=== PATIENT | female | born 1945 | race Caucasian/White ===

== ENCOUNTER → 2016-08-16 | Outpatient (CLI) | payer OTHER ==
[~2016-08-16] MED LIST: ADVIL200 M1 PO; ATARAX PO; ATORVASTATIN CA10 MG PO; CALTRATE 600 W-1 TAB PO; CENTRUM SILVER PO; COZAAR100 MG PO; CRANBERRY300 MG PO; DITROPAN XL5 M2 PO; DITROPAN5 MG PO; FLUOXETINE HCL20 M1 PO; HYDROCODON-ACE1 EAC7 PO; KEFLEX500 MG PO; LIPITOR PO; LORTAB 101 TAB 10/5 PO; MACRODANTIN50 MG PO; MORGIDOX100 MG PO; NORCO1 TAB 10/3; OMEPRAZOLE20 M1 PO; PREDNISONE PO; PRILOSEC20 M1 PO; REGLAN10 MG PO; SERTRALINE HCL50 MG PO; VIT C PO
--- NOTE | ~2016-08-16 | MY11 ---
[facility] A Service of [facility] RADIOLOGY TEXT RESULTS PATIENT: PAN WILKINSON LOCATION: [facility] : 41 UNIT #: [id number] AGE: [address]: Malik Gamble MD SEX: F ORDER DR: [id number] [address] [address] [id number] O MR#: [id number] Acc #: [id number] NAME: PAN WILKINSON : 1945 SEX: F STUDY DATE/TIME: 08/16/2016 10:13 UNIT: [facility] ROOM: STUDY DESCRIPTION: MY Mammogram Screening Dig Jason Attending Physician: Malik Gamble M.D. Referring Physician: Malik Gamble M.D. Ordering Physician: Malik Gamble M.D. Primary Care Physician: Malik Gamble M.D. MEDICAL IMAGING REPORT This report is preliminary unless electronic signature is present. EXAM Digital screening mammogram 08/16/2016 [facility] HISTORY 71-year-old woman; no risk elevation. Annual screening. COMPARISON Comparison mammograms date to 09/17/2010, with most recent 07/03/2015. FINDINGS Digital imaging of each breast was completed utilizing a two-view examination of each breast in craniocaudal and mediolateral-oblique projections. Review and interpretation of digital mammograms include a second review in conjunction with FDA-approved CAD device. There is a normal parenchymal presentation bilaterally consistent with the patient's age. There are no breast masses imaged and no parenchymal asymmetry is visualized. There are no suspicious microcalcifications and I see no focal architectural disturbance. IMPRESSION Negative screening digital mammogram. One-year followup recommended. Patients over the age of 40 are entered into a reminder system with target due date for the next mammogram. A result letter will also be sent to the patient. BIRADS: 1 Negative Dictated by... Bull Stover M.D. [facility] A Service of [facility] RADIOLOGY TEXT RESULTS PATIENT: PAN WILKINSON LOCATION: [facility] : 41 UNIT #: [id number] AGE: [address]: Mlaik Gamble MD SEX: F ORDER DR: THIS IS AN ELECTRONICALLY VERIFIED REPORT Bull Stover M.D. at 08/19/2016 8:15 AM Macie TD: 08/16/2016 16:52 JOB #: [id number] MEDICAL IMAGING REPORT Page 1 of 1
--- NOTE | ~2016-08-16 | BD1 ---
[facility] A Service of [facility] RADIOLOGY TEXT RESULTS PATIENT: PAN WILKINSON LOCATION: [facility] : 41 UNIT #: [id number] AGE: [address]: Malik Gamble MD SEX: F ORDER DR: [id number] [address] [address] [id number] O MR#: [id number] Acc #: [id number] NAME: PAN WILKINSON : 1945 SEX: F STUDY DATE/TIME: 08/16/2016 10:05 UNIT: [facility] ROOM: STUDY DESCRIPTION: Dexa Bone Dens 1+ Site Attending Physician: Malik Gamble M.D. Referring Physician: Malik Gamble M.D. Ordering Physician: Malik Gamble M.D. Primary Care Physician: Malik Gamble M.D. MEDICAL IMAGING REPORT This report is preliminary unless electronic signature is present. EXAM DXA scan, 08/16/2016. HISTORY Status post menopause with no hormone replacement therapy. Osteopenia. Arthritis. Smoking history for 25 years. Hypertension with blood pressure medication. FINDINGS Bone mineral density in the lumbar spine from L1 through L4 was 1.361 g/cm2 which is 1.5 standard deviations above the mean when compared to the young adult reference population which is within the range of normal. This is 2.1 standard deviations above the mean when compared to the age-matched population. Compared with 11/17/2012, there has been an increase in bone mineral density in the lumbar spine at 3.6%. Bone mineral density in the left femoral neck was 1.078 g/cm2 which is 0.3 standard deviations above the mean when compared to the young adult reference population which is within the range of normal. This is 1.4 standard deviations above the mean when compared to the age-matched population. Compared with 11/17/2012, there has been an increase in bone mineral density in the left hip of 2.3%. Bone mineral density in the right femoral neck was 0.13 g/cm2 which is 0.7 standard deviations above the mean when compared to the young adult reference population which is within the range of normal. This is 1.7 standard deviations above the mean when compared to the age-matched population. Compared with 11/17/2012 there has been a decrease in bone mineral density in the right hip of 4.4%. IMPRESSION Bone mineral density in the lumbar spine within the range of normal and within the hips bilaterally also within the range of normal. Compared with 11/17/2012, there has been an increase in bone mineral density in the lumbar spine and left hip and a decrease in bone mineral density in the STS. [facility] A Service of [facility] RADIOLOGY TEXT RESULTS PATIENT: PAN WILKINSON LOCATION: [facility] : 41 UNIT #: [id number] AGE: [address]: Malik Gamble MD SEX: F ORDER DR: right hip. Dictated by... Josué Brewer M.D. THIS IS AN ELECTRONICALLY VERIFIED REPORT Josué Brewer M.D. at 08/16/2016 6:25 PM Emil TD: 08/16/2016 17:19 JOB #: [id number] MEDICAL IMAGING REPORT Page 1 of 1
== END | disposition home or self-care (01) ==
LOC: SRAD 09:16
DX: Z12.31 Encounter for screening mammogram for malignant neoplasm of breast (principal); Z13.820 Encounter for screening for osteoporosis; M85.88 Other specified disorders of bone density and structure, other site; M85.852 Other specified disorders of bone density and structure, left thigh; Z78.0 Asymptomatic menopausal state
CPT/HCPCS: 77080; G0202